=== PATIENT | female | born 1970 | race Caucasian/White ===

== ENCOUNTER → 2017-10-23 09:04 | Outpatient (POV) | payer OTHER, SELFPAY | PROVIDERS: Visit Provider Nurse Practitioner Acute Care | DX: Z00.00 Encounter for general adult medical examination without abnormal findings (principal) ==

== ENCOUNTER → 2018-07-24 09:57 | Outpatient (POV) | payer OTHER, SELFPAY | PROVIDERS: Visit Provider Dermatology | DX: Z00.00 Encounter for general adult medical examination without abnormal findings (principal) ==

== ENCOUNTER → 2018-07-27 13:12 | Outpatient (CLI) | payer OTHER, MEDICARE, SELFPAY ==
--- NOTE | 2018-07-27 13:23 | US_ITS ---
ULTRASOUND THYROID HISTORY: Left neck swelling. Thyroid swelling Thyroid enlarged PROCEDURE: Multiple sagittal and transverse ultrasound images of the thyroid.. COMPARISON: None ----- FINDINGS: Homogeneous Thyroid gland appears normal size bilaterally with tiny cyst on right. Probable lipoma adjacent to the left lobe of thyroid. Incidentally noted. ISTHMUS: Normal of moderate homogeneous Isthmus 4 mm AP. Thickness RIGHT LOBE: 3.6 cm x 1 cm wide x 1.3 cm AP. Nodule A: Very tiny barely evident 2.7 mm x 1.1 mm tiny cyst. Not of significance. LEFT LOBE: 2.6 cm length x1.1 similar wide x 0.8 cm AP. . Adjacent to the left lobe is a 3.1cm length x 0.8 cm AP x 2.4 cm transverse Cm flat disc shaped area which is likely a lipoma. It is adjacent the left lobe of thyroid, adjacent to the sternocleidomastoid muscle. If This becomes more palpable, enlarges or more problematic, a CT neck with contrast recommended to further evaluate. IMPRESSION...... Normal size homogeneous thyroid gland. Only a very tiny cyst seen at right lobe. Not of significance Incidental note a probable lipoma just adjacent the left lobe of thyroid. 3.1 cm right x0.8 cm AP If This enlarges, becomes more palpable, 4 more problematic, then a CT neck with contrast recommended to further evaluate.
== END ==
PROVIDERS: PCP Pediatrics; Visit Provider Pediatrics
DX: E01.0 Iodine-deficiency related diffuse (endemic) goiter (principal)
CPT/HCPCS: 76536

== ENCOUNTER → 2020-04-23 14:15 | Outpatient (CLI) | payer OTHER, SELFPAY ==
[2020-04-23 16:05] LABS: Chloride 105 mmol/L (98-107); Potassium 4.1 mmoL/L (3.5-5.1); Sodium 140 mmol/L (136-145)
[2020-04-23 16:07] LABS: Blood Urea Nitrogen 20 mg/dl (7-17); Estimated Glomerular Filt Rate 58 ml/min (>60); GFR (African American) 71 ML/MIN (>60)
[2020-04-23 16:08] LABS: Alanine Aminotransferase 47 U/L (12-78); Albumin Level 4.3 g/dl (3.5-5.0); Albumin/Globulin Ratio 1.3 (1.1-1.8); Alkaline Phosphatase 244 U/L (38-126); Anion Gap 14.1 mEq/L (5-15); Aspartate Amino Transferase 48 U/L (14-36); Bilirubin,Total 0.5 mg/dl (0.2-1.3); Calcium 9.5 mg/dl (8.4-10.2); Carbon Dioxide 25 mmol/L (22.0-30.0); Cholesterol 293 mg/dl (140-200); Globulin 3.4 g/dL (1.3-3.2); Glucose 105 mg/dl (74-100); Total Protein,Serum 7.7 g/dl (6.3-8.2); Triglycerides 240 mg/dl (30-150); VLDL Cholesterol 48 mg/dL (0-40)
[2020-04-23 16:09] LABS: Basophils # 0.1 K/mm3 (0-0.2); Basophils % 0.8 % (0.1-2.0); Eosinophils # 0.6 K/mm3 (0.0-0.4); Eosinophils % 7.9 % (0.1-12.0); HDL Cholesterol 59 mg/dl (40-60); Hematocrit 44.2 % (37.0-47.0); Hemoglobin 14.4 g/dL (12.2-16.2); Lymphocytes # 2.4 K/mm3 (0.7-4.5); Lymphocytes % 30.3 % (10-50); Mean Corpuscular HGB Conc 32.5 g/dL (31.8-35.4); Mean Corpuscular Hemoglobin 30.4 pg (27.0-31.2); Mean Corpuscular Volume 93.5 fl (81-99); Mean Platelet Volume 9.5 fl (7.4-10.4); Monocytes # 0.4 K/mm3 (0.1-1.0); Monocytes % 4.5 % (1.7-9.3); Neutrophils # 4.5 K/mm3 (1.8-7.8); Neutrophils % 56.4 % (37.0-80.0); Platelet Count 317 K/mm3 (142-424); Red Blood Count 4.73 M/mm3 (4.20-5.40); Red Cell Distribution Width 13.4 % (11.5-17.5); White Blood Count 7.9 K/mm3 (4.8-10.8)
[2020-04-23 16:20] LABS: Direct LDL Cholesterol 184.12 mg/dL (100-129)
[2020-04-23 16:30] LABS: 25-OH Vitamin D, Total 28.5 ng/mL (30-100)
[2020-04-23 16:40] LABS: Thyroid Stimulating Hormone 3.66 uIU/mL (0.465-4.68)
[2020-04-25 19:39] LABS: FSH 55.8 mIU/mL (.); LH 53.3 mIU/mL (.); Progesterone <0.1 ng/mL (.)
[2020-04-27 12:20] LABS: Estrogen 356 pg/mL (.)
== END ==
PROVIDERS: Visit Provider Physician Assistant
DX: R63.5 Abnormal weight gain (principal); E55.9 Vitamin D deficiency, unspecified; Z79.899 Other long term (current) drug therapy
CPT/HCPCS: 80053; 80061; 82306; 82672; 83001; 83002; 84144; 84436; 84443; 85025

== ENCOUNTER → 2020-06-18 10:45 | Outpatient (CLI) | payer OTHER, MEDICARE, SELFPAY ==
--- NOTE | 2020-06-18 10:46 | MM_ITS ---
PROCEDURE: MM DIG SCREENING MAMM BI W/CAD Digital Breast Tomosynthesis Included CLINICAL INDICATION: Breast cancer screening There is no personal or family history of breast cancer. Patient currently is on estrogen. COMPARISON: MG DMSB DIGITAL MAMM-SCREEN BILATERAL from 06/17/2010 MG DMDBAV DIG MAMM-DX BILAT W/ADD VIEWS from 01/20/2011 TECHNIQUE: Standard CC and MLO images and 3D Tomosynthesis was obtained. R2 CAD reviewed. FINDINGS: Scattered diffuse fibroglandular densities are seen in both breasts. There has been some mild interval fatty replacement the breast parenchyma compared to previous studies. There are couple of benign-appearing microcalcifications left breast. There is no suspicious lesion breast and suspicious microcalcifications. CAD marking left breast was reviewed appears represent minimal asymmetric glandular elements. IMPRESSION: Fibrofatty parenchyma with no suspicious lesions seen BI-RAD Category: 2 Benign Finding(s) FOLLOW-UP: 1YR 1 Year Follow-up (A letter has been sent to the patient regarding results of the study.) Dictated by: Dr. Collin Pretty MD 06/27/2020 09:37 Dr. Collin Pretty MD in [place] 06/27/2020 09:37
== END ==
PROVIDERS: PCP Physician Assistant; Visit Provider Physician Assistant
DX: Z12.31 Encounter for screening mammogram for malignant neoplasm of breast (principal); R63.5 Abnormal weight gain
CPT/HCPCS: 77063; 77067

== ENCOUNTER → 2020-06-24 15:10 | Outpatient (CLI) | payer OTHER, SELFPAY ==
--- NOTE | 2020-06-24 15:10 | US_ITS ---
PROCEDURE: US EXTREMITY LT LIMITED CLINICAL INDICATION: pain left deltoid COMPARISON: No exams were available for comparison FINDINGS: Homogeneous echogenicity is demonstrated within the deltoid muscle in the area clinical concern. No abnormal fluid collections are evident. No obvious muscle tear is are evident. MRI may provide further evaluation if clinically desired IMPRESSION: Unremarkable ultrasound of the left deltoid region Dictated by: Gonzalo Ayala MD 06/24/2020 17:32 Gonzalo Ayala MD in [place] 06/24/2020 17:32
== END ==
PROVIDERS: PCP Physician Assistant; Visit Provider Physician Assistant
DX: M79.602 Pain in left arm (principal)
CPT/HCPCS: 76882

== ENCOUNTER → 2020-07-21 14:37 | Outpatient (CLI) | payer OTHER, SELFPAY ==
[2020-07-21 16:37] LABS: Coronavirus 19 IgG Antibody Negative (Negative); Coronavirus 19 IgM Antibody Negative (Negative)
[2020-07-23 14:24] LABS: Hep A Ab, IgM Negative (Negative); Hepatitis B Core Antibody IgM Negative (Negative); Hepatitis B Surface Antigen Negative (Negative)
[2020-07-24 06:17] LABS: Hepatitis C Antibody <0.1 s/co ratio (0.0-0.9)
== END ==
PROVIDERS: Visit Provider Physician Assistant
DX: Z20.822 Contact with and (suspected) exposure to COVID-19 (principal); R05 Cough; R89.9 Unspecified abnormal finding in specimens from other organs, systems and tissues
CPT/HCPCS: 80074; 86328

== ENCOUNTER → 2020-08-03 15:10 | Outpatient (CLI) | payer OTHER, SELFPAY ==
--- NOTE | 2020-08-03 15:10 | MR_ITS ---
PROCEDURE: MR HUMERUS LT WO CON CLINICAL INDICATION: swelling left deltoid Intermittent whole arm pain [id number]. Possible torn muscle COMPARISON: US US EXTREMITY LT LIMITED from 06/24/2020 TECHNIQUE: Routine multiplanar multi echo sequences are performed without gadolinium enhancement. FINDINGS: There is a mild degree of motion artifact which somewhat obscures fine detail. Small linear area of increased T2 signal is present within the deltoid muscle superiorly and medially adjacent to the humeral head suggesting a small amount of fluid in this region which could be posttraumatic. No large muscle tear is apparent. No obvious fracture of the humerus. The glenohumeral region is not well delineated. There is a small shoulder joint effusion. IMPRESSION: Small amount of fluid signal intensity within the medial aspect of the deltoid which could be posttraumatic and could be seen with minimal muscular tear. No large tear is are apparent. Small shoulder joint effusion. Dictated by: Gonzalo Ayala MD 08/05/2020 08:51 Gonzalo Ayala MD in [place] 08/05/2020 08:51
== END ==
PROVIDERS: PCP Physician Assistant; Visit Provider Physician Assistant
DX: M79.602 Pain in left arm (principal)
CPT/HCPCS: 73218

== ENCOUNTER → 2020-08-24 08:51 | Outpatient (CLI) | payer OTHER, SELFPAY ==
--- NOTE | 2020-08-24 08:51 | FL_ITS ---
PROCEDURE: FL BARIUM SWALLOW CLINICAL INDICATION: dysphgia COMPARISON: No exams were available for comparison FINDINGS: There is mild spasm the cricopharyngeus. Small anterior osteophytes are present at C5-C6 also causing some posterior impingement upon the cervical esophagus. There is a small sliding hiatal hernia narrowing of the distal esophagus which does not permit the passage of a 12.5 mm barium tablet. The narrowing is smooth in nature possibly due to stricture formation not as thin as what 1 would expect for a normal Schatzki's ring. There is some shouldering of this region posteriorly. IMPRESSION: 1. Smooth narrowing of the distal esophagus with shouldering posteriorly which does not permit the passage of a 12.5 mm barium tablet. This may be due to esophageal stricture. Direct visualization is suggested to exclude the possibility of a neoplastic process. 2. Small sliding hiatal hernia Dictated by: Gonzalo Ayala MD 08/24/2020 09:59 Gonzalo Ayala MD in [place] 08/24/2020 09:59
== END ==
PROVIDERS: PCP Physician Assistant; Visit Provider Surgery
DX: R13.10 Dysphagia, unspecified (principal)
CPT/HCPCS: 74220

== ENCOUNTER 2020-08-24 10:57 | Outpatient (RCR) | payer OTHER, SELFPAY ==
--- NOTE | 2020-08-24 13:49 | HMH.OTOPEV ---
OT Inpatient Evaluation Rehab OT Outpatient Eval Start: 08/24/20 13:40 Freq: Status: Active Protocol: Document 08/24/20 13:40 RMARSHALL (Rec: 08/24/20 13:49 [id number] Electronically Signed By Toña Jackson OT 08/24/20 13:40 Outpatient Therapy Subjective History Subjective History Pt is a 50 year old female who reports to therapy due to L shoulder/arm pain. Pt reports ~3 months ago she was reaching behind her couch with left arm when she felt she has strained it. Ever since this incident she has hand pain and stiffness in Left shoulder. Pt does demonstrate with significant decline in AROM and strength at left shoulder. Pt has seen PCP and has an appointment with ortho on September 11. Pt will continue to be seen in order to address all deficits. Chief Complaint Pain,Stiff,Weakness Symptom Type Ache,Throb,Sharp,Dull Symptoms Relieved By Nothing,Rest/Positioning Symptoms Aggravated By Physical Activity,Lifting Prior Functional Limitations None Current Functional Limitations Reaching,Lifting,Housework, Sleeping,Squatting Symptom Description Intermittent,Activity Dependent Level of pain today (0-10) 0 Pain scale - at its best (0-10) 0 Pain scale - at its worst (0-10) 10 Shoulder/Elbow Eval Shoulder Objective Measurements Shoulder ROM Left Shoulder Abduction Active Range of 85 degrees Motion (degrees) Shoulder Flexion Active Range of Motion 65 degrees (degrees) Query Text: Shoulder External Rotation Active Range 30 degrees of Motion (degrees) Shoulder Internal Rotation Active Range 35 degrees of Motion (degrees) pain with active ROM shoulder exam left standard pain with passive ROM shoulder exam left standard decreased ROM shoulder exam standard left Shoulder MMT Shoulder Abduction Strength Grade 3- Fair- Shoulder Extension Strength Grade 3- Fair- Shoulder Flexion Strength Grade 3- Fair- Shoulder External Rotation Strength 3- Fair- Grade Shoulder Internal Rotation Strength 3- Fair- Grade Shoulder Strength Patient Testing Sitting Position Elbow O
== END 2020-08-24 10:59 | disposition home or self-care (01) ==
LOC: OT 10:57
PROVIDERS: PCP Physician Assistant; Visit Provider Physician Assistant
DX: M79.602 Pain in left arm (principal)
CPT/HCPCS: 97166

== ENCOUNTER → 2020-08-25 12:50 | Outpatient (CLI) | payer OTHER, SELFPAY | PROVIDERS: Visit Provider Surgery | DX: Z20.822 Contact with and (suspected) exposure to COVID-19 (principal); U07.1 COVID-19 | CPT/HCPCS: U0003 ==

== ENCOUNTER → 2020-09-04 16:50 | Outpatient (CLI) | payer OTHER, SELFPAY ==
--- NOTE | 2020-09-04 16:51 | MR_ITS ---
PROCEDURE INFORMATION: Exam: MR Head Without Contrast Exam date and time: 09/04/2020 4:51 PM Age: 50 years old Clinical indication: Pain; Headache; Migraine; Additional info: Headaches. PT C/O chronic migraines with dizziness. TECHNIQUE: Imaging protocol: MR of the head without contrast. COMPARISON: No relevant prior studies available. FINDINGS: Brain: Normal. No acute infarct. No hemorrhage. No significant white matter disease. No edema. Cerebral ventricles: Normal. No ventriculomegaly. Bones/joints: Unremarkable. Paranasal sinuses: Normal as visualized. No acute sinusitis. Mastoid air cells: Normal as visualized. No mastoid effusion. Orbital cavity: Unremarkable. Soft tissues: Unremarkable. IMPRESSION: No acute findings.
== END ==
LOC: RAD 16:51
PROVIDERS: PCP Physician Assistant; Visit Provider Specialist
DX: G43.019 Migraine without aura, intractable, without status migrainosus (principal); H91.90 Unspecified hearing loss, unspecified ear
CPT/HCPCS: 70551

== ENCOUNTER → 2020-09-15 12:21 | Outpatient (CLI) | payer OTHER, SELFPAY | PROVIDERS: Visit Provider Surgery | DX: Z01.812 Encounter for preprocedural laboratory examination (principal); Z20.822 Contact with and (suspected) exposure to COVID-19; Z13.810 Encounter for screening for upper gastrointestinal disorder; Z12.11 Encounter for screening for malignant neoplasm of colon | CPT/HCPCS: U0003 ==

== ENCOUNTER 2020-09-17 07:48 | Day surgery (SDC) | payer OTHER, SELFPAY ==
[2020-08-25 14:00] VITALS: BMI 40.0
[2020-09-17] VITALS (7 sets, daily range): BP systolic 126–149; BP diastolic 66–85; PULSE 54–79; RESP 16–20; TEMP 36.1–36.6; O2SAT 95–99
--- NOTE | 2020-09-17 09:11 | P.PN_ITS ---
[facility] Anesthesia Checklist - Structural Data Admitted From: Home Planned Operative Procedure/s: egd,colonoscopy Consent for Planned Operative Procedure(s) Verified: Yes - Additional verifications Anesthesia Reactions: No - Airway Assessment C-Spine Mobility Assessed: Yes TMJ Mobility Assessed: Yes Dentition: Good Dentition - Neurological Assessment Level of Consciousness: Awake, Alert, Appropriate - Anesthesia Plan Anesthesia Risk discussed: Yes Anesthesia Plan: Verified ASA Class: II Anesthesia Type: MAC [facility] History I have reviewed the patient's past medical history: Yes Medical History: Reports:: Anxiety, Cancer, Depression, Hyperlipidemia, Hypertension, Migraine Denies:: Diabetes Mellitus Type 1, Diabetes Mellitus Type 2, Internal Pacemaker, Lung Disease, MRSA, Seizures *Have you ever received a pneumonia vaccine?: No *Have you received a flu vaccine this season?: No Other Medical History: Reports: Sinus Problems, Other Anesthesia experience/problems:: none Other Surgeries: Yes: Appendectomy, Cholecystectomy, Colonoscopy, Hysterectomy- Total. No: Pacemaker Amputation: No Fractures: No - *Social History Smoking Status: Never smoker Alcohol Intake: never Substance Use Type: denies use *Occupational Status:: other Housing: house Household Members: spouse, children *Travel in the last 8 weeks: None - Psychiatric History Pschychiatric History:: Reports:: Anxiety, Depression Family Hx:: Cancer, Diabetes, Heart Attack, Hypertension
--- NOTE | 2020-09-17 09:59 | P.PCN_ITS ---
- Procedure: Date: 09/17/20 Patient Date of :: 1970 Procedure Performed:: Esophagogastroduodenoscopy with biopsy Colonoscopy with polypectomy Indications:: Dysphagia History of esophageal stricture requiring dilation. Recent barium swallow showing smooth narrowing of the distal esophagus with shouldering posteriorly History of colon polyps Performing Provider:: Ilan Buck MD Referring Provider:: . Sedation:: Monitored anesthesia care Procedure:: After informed consent was obtained the patient was taken to the endoscopy suite. Sedation ensued after the patient was transferred to the left lateral decubitus position. Pulse, blood pressure, and oxygen saturation were monitored throughout the procedure. The endoscope was advanced beyond the duodenal bulb. Retroflexion within the gastric lumen was accomplished. The gastroscope was carefully removed. Digital rectal exam revealed no significant abnormality. The colonoscope was placed in position. The entire colon was evaluated. The colonoscope was carefully removed and the patient was transferred to recovery in stable condition. Please see findings and specimens below for detail. Findings:: Distal esophageal stricture consistent with partial Schatzki ring. Scope was able to pass with minimal difficulty creating slight dilatation. Once this was completed the scope passed with no difficulty. A biopsy was obtained at this site. No additional dilatation completed secondary to above findings. Sliding hiatal hernia Poor bowel preparation for colonoscopy Significant spasticity and lack of relaxation Sigmoid diverticulosis Complex pedunculated friable polyp at 32 cm (tattoo and snare) Specimens:: Antral biopsy Biopsy of gastroesophageal junction/site of stricture Large complex pedunculated friable colon polyp at 32 cm (snare and tattoo) Recommendations:: Follow-up pathology Proton pump inhibition Likely repeat EGD in near future for serial dilatation Timing of repeat colonoscopy is pending pathology but will likely be between 6- 12 months secondary to poor bowel preparation, lack of relaxation, and size/nature of polyp at 32 cm. Complications:: No immediate with the exception of poor bowel preparation Estimated blood obtained (mL): 1
== END 2020-09-17 10:45 | disposition home or self-care (01) ==
PROVIDERS: PCP Physician Assistant; Visit Provider Surgery
PROC: 0DJ08ZZ Inspection of Upper Intestinal Tract, Via Natural or Artificial Opening Endoscopic (ICD-10-PCS; CPT 43235; principal; 2020-09-17 09:00)
DX: Z12.11 Encounter for screening for malignant neoplasm of colon (principal); K63.5 Polyp of colon; K58.9 Irritable bowel syndrome, unspecified; K57.30 Diverticulosis of large intestine without perforation or abscess without bleeding; K22.2 Esophageal obstruction; K44.9 Diaphragmatic hernia without obstruction or gangrene; Z87.19 Personal history of other diseases of the digestive system; Z86.010 Personal history of colon polyps; F41.9 Anxiety disorder, unspecified; E78.5 Hyperlipidemia, unspecified; I10 Essential (primary) hypertension; G43.909 Migraine, unspecified, not intractable, without status migrainosus; Z85.9 Personal history of malignant neoplasm, unspecified
CPT/HCPCS: 43239; 45385; 45381

== ENCOUNTER → 2020-10-19 13:57 | Outpatient (POV) | payer OTHER, SELFPAY | PROVIDERS: Visit Provider Nurse Practitioner Family | DX: Z00.00 Encounter for general adult medical examination without abnormal findings (principal) ==

== ENCOUNTER 2020-11-29 13:04 | Observation (INO) | payer OTHER, MEDICARE, SELFPAY ==
[2020-11-29 14:00] VITALS: BP 101/75; PULSE 82; RESP 20; TEMP 36.8; O2SAT 98; BMI 33.3
--- NOTE | 2020-11-29 14:28 | HMH.EDUTC ---
[facility] [place] Disposition Clinical Impression: Hypokalemia Pneumonia Qualifiers: Pneumonia type: due to unspecified organism Laterality: unspecified laterality Lung location: unspecified part of lung Qualified Code(s): J18.9 - Pneumonia, unspecified organism Disposition: Still a Patient Condition on Discharge: Good Instructions: Pneumonia-Adult Referrals: Harika King PA [Primary Care Provider] - Time of Disposition: 16:05 Medical Decision Making - Naman Inquiry Pt receiving controlled substance: No Vital Signs: 11/29/20 14:00 Temperature 98.3 F Temperature Source Oral Pulse Rate [Right Brachial] 82 Respiratory Rate 20 Blood Pressure [Right Arm] 101/75 L Blood Pressure Mean [Right Arm] 83 Blood Pressure Source [Right Arm] Automatic Cuff Blood Pressure Position [Right Arm] Sitting 02 Sat by Pulse Oximetry 98 Oxygen Delivery Method Room Air - Lab Data Lab Results 11/29/20 14:58: WBC 4.1 L, RBC 4.85, Hgb 13.7, Hct 43.0, MCV 88.6, MCH 28.2, MCHC 31.8, RDW 13.9, Plt Count 158, MPV 9.3, Neut % (Auto) 65.5, Lymph % (Auto) 28.4, Pope % (Auto) 5.4, Eos % (Auto) 0.2, Baso % (Auto) 0.5, Neut # (Auto) 2.7, Lymph # (Auto) 1.2, Pope # (Auto) 0.2, Eos # (Auto) 0.0, Baso # (Auto) 0.0 11/29/20 14:58: Sodium 142, Potassium 3.1 L, Chloride 105, Carbon Dioxide 25, Anion Gap 15.1 H, BUN 9, Creatinine 0.80, Estimated Creat Clear 119, Estimated GFR 76, Est GFR ( Amer) 92, Glucose 109 H, Calcium 8.4 Result diagrams: 11/29/20 14:58 11/29/20 14:58 Orders (Tests/Meds): ED MEDICATIONS Discontinued Medications Generic Name Dose Route Start Last Admin Trade Name Freq PRN Reason Stop Dose Admin Potassium Chloride 20 meq 11/29/20 15:40 Potassium Chloride 20meq Tab PO 11/29/20 15:41 ONCE ONE ORDERS Category Date Time Status Rapid PCR Covid and Flu A/B Stat Lab 11/29/20 16:00 Ordered [facility] [place] HPI - General Chief complaint: [facility]gent [facility] Stated complaint: cough, diarrhea Time Seen by Provider: 11/29/20 14:32 Mode of Arrival: Ambulatory Source of Information: Patient, Spouse Limitations: No Limitations Description of Symptoms (Recalled from Triage Doc. by RN): PATIENT C/O DIARRHEA, NAUSEA, COUGH, WEAKNESS AND DECREASED APPETITE. SHE STATES SYMPTOMS STARTED LAST MONDAY. REPORTS A RECENT 15 POUND WEIGHT LOSS HEENT Symptoms (Recalled from RN notes): No Resp Symptoms (Recalled from RN notes): Yes Skin Symptoms (Recalled from RN notes): No MS Symptoms (Recalled from RN notes): No Functional Status (Recalled from RN notes): WNL - History of Present Illness Provider Complaint: 50 yr old female presents for c/o diarrhea,nausea,cough,weakness, soa, and decrease appetite since last monday. pt states she has lost 15 lbs since symptoms started. - Related Data Home Medications Medication Instructions Recorded Confirmed Montelukast Sodium [Singulair] 10 mg PO HS 08/25/20 10/05/20 Trazodone HCl 100 mg PO DAILY 08/25/20 10/05/20 Topiramate 250 mg PO DAILY 09/17/20 10/05/20 esomeprazole magnesium 20 mg 20 mg PO DAILY 10/05/20 10/05/20 capsule,delayed release Previous Rx's Medication Instructions Recorded estradiol 1 mg tablet 1 mg PO DAILY #30 tab 09/09/20 atorvastatin 10 mg tablet See Rx Instructions .ROUTE 11/03/20 .COMPLEX #30 tablet levocetirizine 5 mg tablet See Rx Instructions .ROUTE 11/06/20 .COMPLEX #30 tablet ergocalciferol (vitamin D2) 1,250 See Rx Instructions .ROUTE 11/12/20 mcg (50,000 unit) capsule .COMPLEX #4 cap venlafaxine 37.5 mg See Rx Instructions .ROUTE 11/12/20 capsule,extended release 24 hr .COMPLEX #30 capsule Allergies Allergy/AdvReac Type Severity Reaction Status Date / Time sulfamethoxazole Allergy Verified 10/05/20 09:57 [From ] trimethoprim [From ] Allergy Verified 10/05/20 09:57 - Worker's Comp Is this a Worker's Comp case?: No [facility] History - Hepatitis A Screen Drug use history?: No High risk sexual be
--- NOTE | 2020-11-29 14:31 | XR_ITS ---
PROCEDURE INFORMATION: Exam: XR Chest Exam date and time: 11/29/2020 2:31 PM Age: 50 years old Clinical indication: Cough and other: Congestion; Patient HX: Cough and congestion for a week. TECHNIQUE: Imaging protocol: XR of the chest. Views: 2 views. COMPARISON: MR HUMERUS LT WO CON 08/03/2020 3:24 PM FINDINGS: Lungs: Patchy faint airspace densities bilaterally. Worrisome for multifocal pneumonia. Pleural spaces: Unremarkable. No pleural effusion. No pneumothorax. Heart/Mediastinum: Unremarkable. No cardiomegaly. Bones/joints: Unremarkable. IMPRESSION: Patchy faint airspace densities bilaterally. Worrisome for multifocal pneumonia.
[2020-11-29 15:23] LABS: Basophils % 0.5 % (0.1-2.0); Chloride 105 mmol/L (98-107); Eosinophils % 0.2 % (0.1-12.0); Hemoglobin 13.7 g/dL (12.2-16.2); Lymphocytes # 1.2 K/mm3 (0.7-4.5); Lymphocytes % 28.4 % (10-50); Mean Corpuscular HGB Conc 31.8 g/dL (31.8-35.4); Mean Corpuscular Hemoglobin 28.2 pg (27.0-31.2); Mean Corpuscular Volume 88.6 fl (81-99); Mean Platelet Volume 9.3 fl (7.4-10.4); Monocytes # 0.2 K/mm3 (0.1-1.0); Monocytes % 5.4 % (1.7-9.3); Neutrophils # 2.7 K/mm3 (1.8-7.8); Neutrophils % 65.5 % (37.0-80.0); Platelet Count 158 K/mm3 (142-424); Potassium 3.1 mmoL/L (3.5-5.1); Red Blood Count 4.85 M/mm3 (4.20-5.40); Red Cell Distribution Width 13.9 % (11.5-17.5); Sodium 142 mmol/L (136-145); White Blood Count 4.1 K/mm3 (4.8-10.8)
[2020-11-29 15:26] LABS: Blood Urea Nitrogen 9 mg/dl (7-17); Creatinine Clearance Estimated 119 mL/min (50-200); Estimated Glomerular Filt Rate 76 ml/min (>60); GFR (African American) 92 ML/MIN (>60)
[2020-11-29 15:27] LABS: Anion Gap 15.1 mEq/L (5-15); Calcium 8.4 mg/dl (8.4-10.2); Carbon Dioxide 25 mmol/L (22.0-30.0); Glucose 109 mg/dl (74-100)
[2020-11-29 16:11] VITALS: BP 101/75; PULSE 82; RESP 20; TEMP 36.8; O2SAT 98
[2020-11-29 16:12] LABS: Influenza A, PCR Not Detected (NotDetected); Influenza B, PCR Not Detected (NotDetected)
[2020-11-29 16:20] VITALS: BMI 36.6
--- NOTE | 2020-11-29 16:25 | HMH.HP ---
*Admission Date: 11/29/20 *Chief complaint: soa,weakness *History of present illness: 50 yr old female presents to the [facility] c/o diarrhea,nausea,cough,weakness, soa, and decrease appetite since last monday. pt states she has lost 15 lbs since symptoms started. Pt states her weakness and soa has increased. Discussed with dr cruz, decision to admit and orders per dr cruz for pneumonia r/t covid. [facility] History I have reviewed the patient's past medical history: Yes Medical History: Reports:: Anxiety, Cancer, Depression, Hyperlipidemia, Hypertension, Migraine Denies:: Diabetes Mellitus Type 1, Diabetes Mellitus Type 2, Internal Pacemaker, Lung Disease, MRSA, Seizures *Have you ever received a pneumonia vaccine?: No *Have you received a flu vaccine this season?: No Other Medical History: Reports: Sinus Problems, Other Other Surgeries: Yes: Appendectomy, Cholecystectomy, Colonoscopy, EGD, Hysterectomy-Total. No: Pacemaker Amputation: No Fractures: No - *Social History Smoking Status: Never smoker Alcohol Intake: never Substance Use Type: denies use *Occupational Status:: other Housing: house Household Members: spouse, children *Travel in the last 8 weeks: None - Psychiatric History Pschychiatric History:: Reports:: Anxiety, Depression Family Hx:: Cancer, Diabetes, Heart Attack, Hypertension Review of Systems - Review of Systems Review of systems:: pertinent systems reviewed and negative unless documented below - Constitutional Reports body ache(s), Reports fatigue, Reports fever(s), Reports lack of energy, Reports weakness - Eyes Denies blurry vision - ENT Reports nasal obstruction, Reports sore throat, Denies dizziness - *Cardiovascular Reports shortness of breath, Reports shortness of breath with activity, Denies leg sores - *Respiratory Reports shortness of breath, Reports shortness of breath with activity - *Gastrointestinal Reports nausea, Reports vomiting - *Genitourinary Denies difficulty starting urination - *Musculoskeletal Denies abnormal walking - Integumentary/Breasts Denies unusual bruising - *Neurologic Reports headache(s), Denies dizziness - Psychiatric Denies anxiety - Endocrine Denies increased hunger - Hematologic/Lymphatic Denies easy bruising - Allergic/Immunologic Denies GI upset with certain foods Meds Home Medications Medication Instructions Recorded Confirmed Type Montelukast Sodium [Singulair] 10 mg PO HS 08/25/20 11/29/20 History Trazodone HCl 100 mg PO HS 08/25/20 11/30/20 History estradiol 1 mg tablet 1 mg PO DAILY #30 tab 09/09/20 11/29/20 Rx esomeprazole magnesium 20 mg 20 mg PO DAILY 10/05/20 11/29/20 History capsule,delayed release Atorvastatin Calcium [Lipitor 10mg 10 mg PO HS 11/29/20 11/30/20 History Tab] Ergocalciferol (Vitamin D2) 50,000 units PO WEEKLY 11/29/20 11/30/20 History [Drisdol] Levocetirizine Dihydrochloride 5 mg PO DAILY 11/29/20 11/29/20 History Venlafaxine HCl [Effexor Xr] 37.5 mg PO DAILY 11/29/20 11/29/20 History Topiramate 200 mg PO BID 11/30/20 11/30/20 History levoFLOXacin [Levofloxacin 750MG 750 mg PO DAILY 3 Days #3 tab 12/01/20 Rx Tablet*] Allergies Allergy/AdvReac Type Severity Reaction Status Date / Time sulfamethoxazole Allergy Verified 11/29/20 17:27 [From ] trimethoprim [From ] Allergy Verified 11/29/20 17:27 Exam Vital signs and Labs for Last 24 Hours: Temp Pulse Resp BP Pulse Ox 98.3 F 82 20 101/75 L 98 11/29/20 16:11 11/29/20 16:11 11/29/20 16:11 11/29/20 16:11 11/29/20 14:00 Laboratory Results - last 24 hr 11/29/20 14:58: WBC 4.1 L, RBC 4.85, Hgb 13.7, Hct 43.0, MCV 88.6, MCH 28.2, MCHC 31.8, RDW 13.9, Plt Count 158, MPV 9.3, Neut % (Auto) 65.5, Lymph % (Auto) 28.4, Becker % (Auto) 5.4, Eos % (Auto) 0.2, Baso % (Auto) 0.5, Neut # (Auto) 2.7, Lymph # (Auto) 1.2, Becker # (Auto) 0.2, Eos # (Auto) 0.0, Baso # (Auto) 0.0 11/29/20 14:58: Sodium 142, Potass
[2020-11-29 16:41] LABS: Coronavirus 19, PCR Detected (NotDetected)
--- NOTE | 2020-11-29 17:01 | PC.NURSE ---
Pt arrived to the floor at this time.
[2020-11-29 17:05] VITALS: BP 158/96; PULSE 83; RESP 22; TEMP 37.1
[2020-11-29 17:30] VITALS: BMI 37.5
--- NOTE | 2020-11-29 17:36 | PC.NURSE ---
Speci cup placed @ bedside. Pt has occasional non-productive cough. She is aware of need for sputum specimen and has been educated.
--- NOTE | 2020-11-29 17:46 | PC.NURSE ---
Waiting on pt's to bring meds to verify meds and dosing
[2020-11-29 19:17] LABS: Lactic Acid 0.6 mmol/L (0.7-2.1)
[2020-11-29 20:00] VITALS: BP 116/65; PULSE 63; RESP 16; TEMP 37.1; O2SAT 98
[2020-11-29 23:33] VITALS: BP 115/62; PULSE 59; RESP 16; TEMP 36.8; O2SAT 96
[2020-11-30 03:59] VITALS: BP 122/71; PULSE 54; RESP 16; TEMP 37; O2SAT 98
--- NOTE | 2020-11-30 04:16 | PC.NURSE ---
Patient is A&Ox4. no complaints of pain. rested throughout shift. VSS. no further concerns
[2020-11-30 04:20] VITALS: BMI 392282.7
--- NOTE | 2020-11-30 07:13 | P.CONPHA_ITS ---
[facility] Pharmacy VTE Monitoring - Patient Demographics Admission date: 11/29/20 Report Date: 11/30/20 Time: 07:13 Allergies/Adverse Reactions: Patient Allergies sulfamethoxazole [From Decra] Allergy (Verified 11/29/20 17:27) trimethoprim [From Decra] Allergy (Verified 11/29/20 17:27) Height: 1.57 cm Weight: 97.296 kg Patient Problems: Current Active Problems Pneumonia (Acute) Hypokalemia (Acute) - VTE Risk Labs: VTE Related Lab Results Hgb 13.7 g/dL (12.2-16.2) 11/29/20 14:58 Hct 43.0 % (37.0-47.0) 11/29/20 14:58 Plt Count 158 K/mm3 (142-424) 11/29/20 14:58 BUN 9 mg/dl (7-17) 11/29/20 14:58 Creatinine 0.80 mg/dl (0.52-1.04) 11/29/20 14:58 Estimated Creat Clear 119 mL/min (50-200) 11/29/20 14:58 VTE Score: 6 VTE Risk Level: Moderate Risk - Prophylaxis VTE Prophylaxis Ordered?: Yes Types of VTE Prophylaxis: TEDS Knee High Location of Applied Device: Bilateral Lower Extremeties
--- NOTE | 2020-11-30 07:17 | HMH.PHAINT ---
MEDICATION RECONCILIATION COMPLETED ON PATIENT USING EXTERNAL FILL HISTORY FROM PHARMACY. -KAREEM OSMAN, SANDRAD
[2020-11-30 08:00] VITALS: BP 119/63; PULSE 56; RESP 16; TEMP 36.8; O2SAT 92
[2020-11-30 08:20] LABS: Basophils % 0.2 % (0.1-2.0); Eosinophils % 0.2 % (0.1-12.0); Hematocrit 39.6 % (37.0-47.0); Hemoglobin 12.7 g/dL (12.2-16.2); Lymphocytes # 0.7 K/mm3 (0.7-4.5); Lymphocytes % 50.8 % (10-50); Mean Corpuscular HGB Conc 32.1 g/dL (31.8-35.4); Mean Corpuscular Hemoglobin 28.9 pg (27.0-31.2); Mean Corpuscular Volume 89.9 fl (81-99); Mean Platelet Volume 9.8 fl (7.4-10.4); Neutrophils # 0.7 K/mm3 (1.8-7.8); Neutrophils % 46.9 % (37.0-80.0); Platelet Count 134 K/mm3 (142-424); Red Blood Count 4.41 M/mm3 (4.20-5.40); Red Cell Distribution Width 13.8 % (11.5-17.5); White Blood Count 1.5 K/mm3 (4.8-10.8)
[2020-11-30 08:24] LABS: Chloride 114 mmol/L (98-107); Potassium 3.8 mmoL/L (3.5-5.1); Sodium 144 mmol/L (136-145)
[2020-11-30 08:26] LABS: Alanine Aminotransferase 29 U/L (12-78); Aspartate Amino Transferase 64 U/L (14-36); Blood Urea Nitrogen 10 mg/dl (7-17); Creatinine Clearance Estimated 170 mL/min (50-200); Estimated Glomerular Filt Rate 105 ml/min (>60); GFR (African American) 128 ML/MIN (>60)
[2020-11-30 08:27] LABS: Albumin Level 3.2 g/dl (3.5-5.0); Alkaline Phosphatase 235 U/L (38-126); Anion Gap 13.8 mEq/L (5-15); Bilirubin,Direct 0.4 mg/dl (0.0-0.4); Bilirubin,Total 0.4 mg/dl (0.2-1.3); Calcium 7.8 mg/dl (8.4-10.2); Carbon Dioxide 20 mmol/L (22.0-30.0); Glucose 128 mg/dl (74-100)
--- NOTE | 2020-11-30 08:46 | HMH.ACPN2 ---
Internal Medicine - PN: Subj *Date: 11/30/20 *Time: 08:46 Interval history: feels better - had positive covid -19 in 08/28 but neg in 09/28 but has dec wbc and plt ct Exam Vital signs and Labs for Last 24 Hours: Temp Pulse Resp BP Pulse Ox 98.2 F 56 L 16 119/63 92 L 11/30/20 08:00 11/30/20 08:00 11/30/20 08:00 11/30/20 08:00 11/30/20 08:00 Laboratory Results - last 24 hr 11/29/20 14:58: WBC 4.1 L, RBC 4.85, Hgb 13.7, Hct 43.0, MCV 88.6, MCH 28.2, MCHC 31.8, RDW 13.9, Plt Count 158, MPV 9.3, Neut % (Auto) 65.5, Lymph % (Auto) 28.4, [place] % (Auto) 5.4, Eos % (Auto) 0.2, Baso % (Auto) 0.5, Neut # (Auto) 2.7, Lymph # (Auto) 1.2, [place] # (Auto) 0.2, Eos # (Auto) 0.0, Baso # (Auto) 0.0 11/29/20 14:58: Sodium 142, Potassium 3.1 L, Chloride 105, Carbon Dioxide 25, Anion Gap 15.1 H, BUN 9, Creatinine 0.80, Estimated Creat Clear 119, Estimated GFR 76, Est GFR ( Amer) 92, Glucose 109 H, Calcium 8.4 11/29/20 16:05: SARS-CoV-2 (PCR) Detected A, Influenza A Untype (PCR) Not detected, Influenza Type B (PCR) Not detected 11/29/20 19:00: Lactate 0.6 L 11/30/20 07:17: WBC 1.5 L* D, RBC 4.41, Hgb 12.7, Hct 39.6, MCV 89.9, MCH 28.9, MCHC 32.1, RDW 13.8, Plt Count 134 L, MPV 9.8, Neut % (Auto) 46.9, Lymph % (Auto) 50.8 H, [place] % (Auto) 2.0, Eos % (Auto) 0.2, Baso % (Auto) 0.2, Neut # (Auto) 0.7 L*, Lymph # (Auto) 0.7, [place] # (Auto) 0.0 L, Eos # (Auto) 0.0, Baso # (Auto) 0.0 11/30/20 07:17: Sodium 144, Potassium 3.8 D, Chloride 114 H, Carbon Dioxide 20 L, Anion Gap 13.8, BUN 10, Creatinine 0.60 D, Estimated Creat Clear 170, Estimated GFR 105, Est GFR ( Amer) 128 D, Glucose 128 H, Calcium 7.8 L, Total Bilirubin 0.4, Direct Bilirubin 0.4, Conjugated Bilirubin 0.0, Indirect Bilirubin 0.0, Unconjugated Bilirubin 0.0, AST 64 H, ALT 29, Alkaline Phosphatase 235 H, Total Protein 6.0 L, Albumin 3.2 L I & O for Last 24 hours: Intake & Output 11/27/20 11/28/20 11/29/20 11/30/20 11:59 11:59 11:59 11:59 Intake Total 1581 / 1581 Output Total 600 / 600 Balance 981 / 981 Weight 214 lb 8 oz - Constitutional no acute distress, obese - *Routine HEENT Exam Head: Present: normocephalic Eye: Present: EOMI, PERRL ENT: Present: mucous membranes dry - *Routine Neck Exam Present: supple. Absent: JVD - *Routine Respiratory Exam Present: rhonchi - *Routine Cardiovascular Exam Present: RRR. Absent: murmur - *Routine Abdominal Exam Present: soft - *Routine Extremities Exam Absent: calf tenderness - *Routine Skin Exam Present: intact - *Routine Neurological Exam Present: alert, CN II-XII intact. Absent: motor deficit - Routine Psychiatric Exam Present: normal affect Assessment and Plan (1) Neutropenia Status: Acute Qualifiers: Neutropenia type: unspecified Qualified Code(s): D70.9 - Neutropenia, unspecified Category: Medical Code(s): D70.9 - Neutropenia, unspecified (2) Thrombocytopenia associated with COVID-19 Status: Acute Category: Medical Code(s): U07.1 - COVID-19; D69.59 - Other secondary thrombocytopenia (3) COVID-19 Status: Acute Category: Medical Code(s): U07.1 - COVID-19 (4) Obesity Status: Chronic Qualifiers: Obesity type: due to excess calories Obesity classification: adult class 3 (BMI >= 40) Serious obesity comorbidity presence: with serious comorbidity Body mass index: BMI 40.0-44.9 Qualified Code(s): E66.01 - Morbid (severe) obesity due to excess calories; Z68.41 - Body mass index [BMI]40.0-44.9, adult Category: Medical Code(s): E66.9 - Obesity, unspecified
[2020-11-30 08:47] LABS: MANUAL DIFFERENTIAL MANUAL DIFFERENTIAL (MANUAL DIFF)
[2020-11-30 09:27] VITALS: BMI 39.3
--- NOTE | 2020-11-30 10:47 | HMH.PULMCON ---
*Admission Date: 11/29/20 *Reason for consult:: COVID-19 pneumonia *History of present illness: Ms. Morrison is a 50-year-old female unvaccinated for COVID-19, never smoker, significant secondhand smoke exposure from her , no prior respiratory complaints, prior diagnosis of COVID-19 pneumonia in August 2020 during which testing was performed as a part of routine screening for preprocedure, not having any symptoms at that time presented to the hospital complaining of worsening cough and chest congestion for the last 5 days and was found to be positive for COVID-19 pneumonia and pulmonary was called for further management. [facility] History Medical History: Reports:: Anxiety, Depression, Hyperlipidemia, Hypertension, Migraine Denies:: Cancer, Diabetes Mellitus Type 1, Diabetes Mellitus Type 2, Internal Pacemaker, Lung Disease, MRSA, Seizures *Have you ever received a pneumonia vaccine?: No *Have you received a flu vaccine this season?: No Other Medical History: Reports: Sinus Problems, Other Other Surgeries: Yes: Appendectomy, Cholecystectomy, Colonoscopy, EGD, Hysterectomy-Total. No: Pacemaker Amputation: No Fractures: No - *Social History Smoking Status: Never smoker Alcohol Intake: never Substance Use Type: denies use *Occupational Status:: unemployed Housing: house Household Members: spouse *Travel in the last 8 weeks: None - Psychiatric History Pschychiatric History:: Reports:: Anxiety, Depression Family Hx:: Cancer, Diabetes, Hypertension ROS - Cons Reports anorexia, Reports body ache(s) - Eyes Denies blurry vision - ENT Denies abnormal hearing - Card Reports shortness of breath, Reports shortness of breath with activity - Resp Respiratory: Reports chest congestion, Reports cough, Reports non-productive cough, Reports dyspnea on exertion, Denies excessive phlegm production, Denies pain on inspiration, Denies pain with cough, Denies cough with sputum production - GI Gastrointestingal: Denies: abdominal pain - [place] Musculoskeletal: Reports muscle weakness - Psych Reports abnormal sleep pattern Meds Home Medications Medication Instructions Recorded Confirmed Type Montelukast Sodium [Singulair] 10 mg PO HS 08/25/20 11/29/20 History Trazodone HCl 100 mg PO HS 08/25/20 11/30/20 History estradiol 1 mg tablet 1 mg PO DAILY #30 tab 09/09/20 11/29/20 Rx esomeprazole magnesium 20 mg 20 mg PO DAILY 10/05/20 11/29/20 History capsule,delayed release Atorvastatin Calcium [Lipitor 10mg 10 mg PO HS 11/29/20 11/30/20 History Tab] Ergocalciferol (Vitamin D2) 50,000 units PO WEEKLY 11/29/20 11/30/20 History [Drisdol] Levocetirizine Dihydrochloride 5 mg PO DAILY 11/29/20 11/29/20 History Venlafaxine HCl [Effexor Xr] 37.5 mg PO DAILY 11/29/20 11/29/20 History Topiramate 200 mg PO BID 11/30/20 11/30/20 History Allergies Allergy/AdvReac Type Severity Reaction Status Date / Time sulfamethoxazole Allergy Verified 11/29/20 17:27 [From ] trimethoprim [From ] Allergy Verified 11/29/20 17:27 Exam - Constitutional Constitutional:: Present: no acute distress, comfortable - HENMT Exam HENMT: Present: normocephalic, atraumatic - Eye Exam Eyes:: Present: normal appearance both eyes and related structures - Neck Exam Neck:: Present: normal visual inspection - Respiratory Exam Respiratory:: Present: able to speak in complete sentences, no respiratory distress, crackles - Cardiovascular Exam Cardiac:: Present: S1, S2 - GI Exam GI:: Present: soft, no hepatosplenomegaly - Skin Exam Skin: Present: warm, dry - Neurological Exam Neurological: Present: alert, awake, normal cognition Internal Medicine - CN: Reslt - Labs CBC & Chem 7: 11/30/20 07:17 11/30/20 07:17 Labs: Short CBC 11/29/20 11/30/20 Range/Units 14:58 07:17 WBC 4.1 L 1.5 L* D (4.8-10.8) K/mm3 Hgb 13.7 12.7 (12.2-16.2) g/dL Hct 43.0 39.6 (37.0-47.0) % Plt Count 158 134 L (142-424)
[2020-11-30 10:56] LABS: D-Dimer 0.55 ug/mL (0.0-0.5)
[2020-11-30 10:59] LABS: C-Reactive Protein 20.2 mg/L (0-4)
[2020-11-30 11:46] LABS: Basophils % 0.1 % (0.1-2.0); Eosinophils % 0.1 % (0.1-12.0); Hematocrit 37.2 % (37.0-47.0); Hemoglobin 12.2 g/dL (12.2-16.2); Lymphocytes # 0.7 K/mm3 (0.7-4.5); Lymphocytes % 31.4 % (10-50); Mean Corpuscular HGB Conc 32.7 g/dL (31.8-35.4); Mean Corpuscular Hemoglobin 28.6 pg (27.0-31.2); Mean Corpuscular Volume 87.6 fl (81-99); Mean Platelet Volume 9.1 fl (7.4-10.4); Monocytes # 0.1 K/mm3 (0.1-1.0); Monocytes % 3.7 % (1.7-9.3); Neutrophils # 1.5 K/mm3 (1.8-7.8); Neutrophils % 64.7 % (37.0-80.0); Platelet Count 136 K/mm3 (142-424); Red Blood Count 4.25 M/mm3 (4.20-5.40); Red Cell Distribution Width 13.9 % (11.5-17.5); White Blood Count 2.2 K/mm3 (4.8-10.8)
[2020-11-30 11:49] VITALS: BP 116/62; PULSE 51; RESP 16; TEMP 36.4; O2SAT 97
[2020-11-30 14:16] LABS: Burr Cells 1+; Hypochromasia 1+; Lymphocytes % 23 % (10-50); Monocytes % 9 % (2-9); Neutrophils % 68 % (42-76); Platelet Estimate Normal; Total Cells Counted 100
[2020-11-30 15:16] VITALS: BP 126/77; PULSE 76; RESP 16; TEMP 36.7; O2SAT 97
--- NOTE | 2020-11-30 17:46 | PC.NURSE ---
PT IS SITTING UP IN THE BED EATING DINNER AT THIS TIME. PT HAS BEEN SITTING UP IN THE RECLINER MOST OF THE SHIFT. TOLERATING REGULAR DIET. PT HAS BEEN AMBULATING TO THE BATHROOM AND AROUND THE ROOM. NON PRODUCTIVE COUGH. PT HAS NO COMPLAINTS OF SOA. O2 SATURATION HAS MAINTAINED IN THE MID 90'S ON ROOM AIR. LUNG SOUNDS DIMINISHED. ABDOMEN SOFT/NON TENDER WITH ACTIVE BOWEL SOUNDS. VSS. WILL CONTINUE TO MONITOR.
[2020-11-30 20:00] VITALS: BP 136/75; PULSE 76; RESP 16; TEMP 36.8; O2SAT 98
[2020-12-01] VITALS: BP 135/73; PULSE 46; RESP 18; TEMP 37; O2SAT 99
[2020-12-01 03:35] VITALS: BP 118/69; PULSE 50; RESP 18; TEMP 36.6; O2SAT 96
--- NOTE | 2020-12-01 04:04 | PC.NURSE ---
Patient is A&Ox4. no complaints of pain.VSS. no further concerns noted by RN or voiced by patient/
--- NOTE | 2020-12-01 06:40 | PC.NURSE ---
patient refused labs this morning.
[2020-12-01 08:00] VITALS: BP 108/61; PULSE 54; RESP 18; TEMP 36.6; O2SAT 97; O2SAT 98
--- NOTE | 2020-12-01 08:14 | HMH.DCSUM ---
General - General Admission date:: 11/29/20 Discharge date: 12/01/20 HPI HPI: Ms. Morrison is a 50-year-old female unvaccinated for COVID-19, never smoker, significant secondhand smoke exposure from her , no prior respiratory complaints, prior diagnosis of COVID-19 pneumonia in August 2020 during which testing was performed as a part of routine screening for preprocedure, not having any symptoms at that time presented to the hospital complaining of worsening cough and chest congestion for the last 5 days and was found to be positive for COVID-19 pneumonia and pulmonary was called for further management. Hospital Course Hospital Course: Ms. Morrison is a 50-year-old female unvaccinated for COVID-19, never smoker, significant secondhand smoke exposure from her , no prior respiratory complaints, prior diagnosis of COVID-19 pneumonia in August 2020 during which testing was performed as a part of routine screening for preprocedure, not having any symptoms at that time presented to the hospital complaining of worsening cough and chest congestion for the last 5 days and was found to be positive for COVID-19 pneumonia and pulmonary was called for further management. 11/29/20 CXR: FINDINGS: Lungs: Patchy faint airspace densities bilaterally. Worrisome for multifocal pneumonia. Pleural spaces: Unremarkable. No pleural effusion. No pneumothorax. Heart/Mediastinum: Unremarkable. No cardiomegaly. Bones/joints: Unremarkable. IMPRESSION: Patchy faint airspace densities bilaterally. Worrisome for multifocal pneumonia. Electronically signed by Mariann Andrea MD Pulmonary has seen and recommends: Blood cultures pending so far. Chest x-ray admission bilateral minimal patchy airspace disease Patient this morning does not appear to be any respiratory distress. On room air. Plan: -Continue remdesivir and dexamethasone for COVID-19 pneumonia until discharge, can be discharged on levofloxacin to complete a total of 5-day course -Combivent every 6 hours as needed 50-year-old female patient sitting up in bed resting quietly, she denies any respiratory distress during the night. She denies any needs at present and verbalizes feeling better she is requesting to be discharged home. Current oxygenation is 97% on room air PLAN: 1. We will discharge home today 2. Follow-up with PCP in 1 week 3. Follow-up with pulmonology in 4 weeks 4. Levofloxacin 750 mg p.o. daily x3 days Objective Vital signs: Temp Pulse Resp BP Pulse Ox 97.9 F 50 L 18 118/69 96 12/01/20 03:35 12/01/20 03:35 12/01/20 03:35 12/01/20 03:35 12/01/20 03:35 no acute distress, obese - *Routine HEENT Exam Head: Present: normocephalic Eye: Present: EOMI ENT: Present: mucous membranes moist - *Routine Neck Exam Present: trachea midline. Absent: tracheal deviation - *Routine Respiratory Exam Present: CTA bilaterally. Absent: accessory muscle use - *Routine Cardiovascular Exam Present: RRR - *Routine Abdominal Exam Present: soft, normoactive bowel sounds. Absent: tenderness, firm - *Routine Extremities Exam Present: full ROM, pulses intact. Absent: cyanosis, clubbing, calf tenderness - *Routine Skin Exam Present: intact, dry, warm. Absent: cyanosis, erythema - *Routine Neurological Exam Present: alert, oriented X3. Absent: motor deficit - Routine Psychiatric Exam Present: normal affect, normal thought process. Absent: auditory hallucinations, visual hallucinations Results Labs on day of discharge: Labs from last 24 hours 11/30/20 11/30/20 11/30/20 11:20 10:25 10:25 WBC 2.2 L D RBC 4.25 Hgb 12.2 Hct 37.2 MCV 87.6 MCH 28.6 MCHC 32.7 RDW 13.9 Plt Count 136 L MPV 9.1 Neut % (Auto) 64.7 Lymph % (Auto) 31.4 [place] % (Auto) 3.7 Eos % (Auto) 0.1 Baso % (Auto) 0.1 Neut # (Auto) 1.5 L Lym
--- NOTE | 2020-12-01 11:26 | HMH.PULMPN ---
Internal Medicine - PN: Subj *Date: 12/01/20 *Time: 11:26 Interval history: No acute respiratory events overnight. Patient continued to remain on room air with no worsening respiratory distress. She denies any new complaints. Exam - Constitutional Constitutional:: Present: no acute distress, comfortable - HENMT Exam HENMT: Present: normocephalic, atraumatic - Eye Exam Eyes:: Present: normal appearance both eyes and related structures - Neck Exam Neck:: Present: normal visual inspection - Respiratory Exam Respiratory:: Present: able to speak in complete sentences, no respiratory distress, crackles, rales. Absent: wheezing - Cardiovascular Exam Cardiac:: Present: S1, S2 - GI Exam GI:: Present: soft - Skin Exam Skin: Present: warm, no rash - Neurological Exam Neurological: Present: alert, awake, normal cognition - Extremities Exam Extremities: Present: no cyanosis, no clubbing, edema - Psychiatric Exam Psychiatric: Present: normal affect Assessment and Plan (1) Neutropenia Status: Acute Qualifiers: Neutropenia type: unspecified Qualified Code(s): D70.9 - Neutropenia, unspecified Category: Medical Code(s): D70.9 - Neutropenia, unspecified (2) Thrombocytopenia associated with COVID-19 Status: Acute Category: Medical Code(s): U07.1 - COVID-19; D69.59 - Other secondary thrombocytopenia (3) COVID-19 Status: Acute Category: Medical Code(s): U07.1 - COVID-19 (4) Obesity Status: Chronic Qualifiers: Obesity type: due to excess calories Obesity classification: adult class 3 (BMI >= 40) Serious obesity comorbidity presence: with serious comorbidity Body mass index: BMI 40.0-44.9 Qualified Code(s): E66.01 - Morbid (severe) obesity due to excess calories; Z68.41 - Body mass index [BMI]40.0-44.9, adult Category: Medical Code(s): E66.9 - Obesity, unspecified - Assessment and plan all Dx Assessment and Plan for all problems:: #COVID-19 pneumonia: 50-year-old male no prior respiratory complaints, unvaccinated for COVID-19, prior history of COVID-19 pneumonia that was managed as an outpatient presents hospital with worsening respiratory distress and nonproductive count was found to be COVID-19 positive. Laboratory abnormalities significant for leukopenia at 1.5 with absolute neutrophil count at 700. Neutrophils has declined from 2700 to 700 and less than 24 hours-repeat CBC showed improving WBC and neutrophil count along with platelets COVID-19 PCR positive, influenza A & B PCR negative. D-dimer 0.55 and CRP at 20.2 Blood cultures pending so far. Chest x-ray admission bilateral minimal patchy airspace disease Patient this morning does not appear to be any respiratory distress. On room air. Plan: -Continue remdesivir and dexamethasone for COVID-19 pneumonia until discharge, can be discharged on levofloxacin to complete a total of 5-day course -Combivent every 6 hours as needed Thank you for involving pulmonary in this patient care. We will follow the patient in the clinic in 4 weeks
[2020-12-02 08:54] LABS: Peripheral Smear Review Scanned Result
== END 2020-12-01 12:55 | disposition home or self-care (01) ==
LOC: UTC 16:06 → 2ND 16:13
PROVIDERS: Internal Medicine Pulmonary Disease; Admitting Provider Emergency Medicine; Emergency Provider Nurse Practitioner Family; PCP Physician Assistant; Visit Provider Emergency Medicine
DX: U07.1 COVID-19 (principal); J18.9 Pneumonia, unspecified organism; D69.59 Other secondary thrombocytopenia; G43.909 Migraine, unspecified, not intractable, without status migrainosus; I10 Essential (primary) hypertension; Z79.899 Other long term (current) drug therapy; Z88.2 Allergy status to sulfonamides; Z88.8 Allergy status to other drugs, medicaments and biological substances; E66.01 Morbid (severe) obesity due to excess calories; Z68.39 Body mass index [BMI] 39.0-39.9, adult
CPT/HCPCS: 36415; 71046; 80048; 80076; 83605; 85007; 85025; 85378; 86140; 87040; 96365; 99202; G0378; G0463; J0456; J2405; U0003

== ENCOUNTER → 2021-06-11 11:48 | Outpatient (CLI) | payer OTHER, MEDICARE, SELFPAY | LOC: SL 11:50 | PROVIDERS: PCP Physician Assistant; Visit Provider Nurse Practitioner Family | DX: E66.9 Obesity, unspecified; Z68.35 Body mass index [BMI] 35.0-35.9, adult; G43.719 Chronic migraine without aura, intractable, without status migrainosus; G47.09 Other insomnia; R53.83 Other fatigue | CPT/HCPCS: G0399 ==

== ENCOUNTER → 2021-08-05 15:49 | Outpatient (CLI) | payer OTHER, SELFPAY ==
[2021-08-05 13:20] LABS: Alanine Aminotransferase 12 U/L (12-78); Albumin Level 3.8 g/dl (3.5-5.0); Albumin/Globulin Ratio 1.5 (1.1-1.8); Alkaline Phosphatase 147 U/L (38-126); Anion Gap 9.3 mEq/L (5-15); Aspartate Amino Transferase 23 U/L (14-36); Basophils % 0.5 % (0.1-2.0); Bilirubin,Total 0.4 mg/dl (0.2-1.3); Blood Urea Nitrogen 10 mg/dl (7-17); Carbon Dioxide 30 mmol/L (22.0-30.0); Chloride 105 mmol/L (98-107); Chol/HDL Ratio 2.8 (1-3.5); Cholesterol 171 mg/dl (140-200); Eosinophils # 0.2 K/mm3 (0.0-0.4); Eosinophils % 2.9 % (0.1-12.0); Estimated Glomerular Filt Rate 88 ml/min (>60); GFR (African American) 106 ML/MIN (>60); Globulin 2.5 g/dL (1.3-3.2); Glucose 88 mg/dl (74-100); HDL Cholesterol 62 mg/dl (40-60); Hematocrit 40.6 % (37.0-47.0); Hemoglobin 13.5 g/dL (12.2-16.2); Lymphocytes # 1.7 K/mm3 (0.7-4.5); Lymphocytes % 34.4 % (10-50); Mean Corpuscular HGB Conc 33.2 g/dL (31.8-35.4); Mean Corpuscular Hemoglobin 30.7 pg (27.0-31.2); Mean Corpuscular Volume 92.6 fl (81-99); Mean Platelet Volume 8.3 fl (7.4-10.4); Monocytes # 0.4 K/mm3 (0.1-1.0); Monocytes % 7.1 % (1.7-9.3); Neutrophils # 2.7 K/mm3 (1.8-7.8); Platelet Count 274 K/mm3 (142-424); Potassium 3.3 mmoL/L (3.5-5.1); Red Blood Count 4.39 M/mm3 (4.20-5.40); Red Cell Distribution Width 13.2 % (11.5-17.5); Sodium 141 mmol/L (136-145); Total Protein,Serum 6.3 g/dl (6.3-8.2); Triglycerides 131 mg/dl (30-150); VLDL Cholesterol 26 mg/dL (0-40)
[2021-08-05 13:31] LABS: Direct LDL Cholesterol 69.05 mg/dL (100-129)
[2021-08-05 13:37] LABS: 25-OH Vitamin D, Total 45.7 ng/mL (30-100)
[2021-08-05 13:52] LABS: Thyroid Stimulating Hormone 0.13 uIU/mL (0.465-4.68)
== END ==
LOC: LAB.DROPOF 15:50
PROVIDERS: Visit Provider Physician Assistant
DX: Z00.00 Encounter for general adult medical examination without abnormal findings (principal); E66.3 Overweight; Z68.34 Body mass index [BMI] 34.0-34.9, adult; Z79.899 Other long term (current) drug therapy
CPT/HCPCS: 80053; 80061; 82306; 84443; 85025

== ENCOUNTER → 2022-12-05 23:08 | Outpatient (CLI) | payer BC, SELFPAY ==
[2022-12-05 18:29] LABS: Alanine Aminotransferase 37 U/L (12-78); Albumin/Globulin Ratio 1.1 (1.1-1.8); Alkaline Phosphatase 230 U/L (38-126); Aspartate Amino Transferase 40 U/L (14-36); Bilirubin,Total 0.2 mg/dl (0.2-1.3); Blood Urea Nitrogen 16 mg/dl (7-17); Calcium 9.2 mg/dl (8.4-10.2); Carbon Dioxide 25 mmol/L (22.0-30.0); Chloride 98 mmol/L (98-107); Chol/HDL Ratio 2.6 (1-3.5); Cholesterol 213 mg/dl (140-200); Estimated Glomerular Filt Rate 65 ml/min (>60); GFR (African American) 79 ML/MIN (>60); Globulin 3.5 g/dL (1.3-3.2); Glucose 136 mg/dl (74-100); HDL Cholesterol 82 mg/dl (40-60); Sodium 141 mmol/L (136-145); Total Protein,Serum 7.5 g/dl (6.3-8.2); Triglycerides 225 mg/dl (30-150); VLDL Cholesterol 45 mg/dL (0-40)
[2022-12-05 18:33] LABS: Hemoglobin A1C 5.4 % (4.0-6.0)
[2022-12-05 18:40] LABS: Basophils % 0.4 % (0.1-2.0); Eosinophils # 0.1 K/mm3 (0.0-0.4); Eosinophils % 1.4 % (0.1-12.0); Hemoglobin 14.3 g/dL (12.2-16.2); Lymphocytes # 1.9 K/mm3 (0.7-4.5); Lymphocytes % 19.7 % (10-50); Mean Corpuscular HGB Conc 31.8 g/dL (31.8-35.4); Mean Corpuscular Hemoglobin 29.4 pg (27.0-31.2); Mean Corpuscular Volume 92.5 fl (81-99); Mean Platelet Volume 8.7 fl (7.4-10.4); Monocytes # 0.4 K/mm3 (0.1-1.0); Monocytes % 4.6 % (1.7-9.3); Neutrophils # 7.1 K/mm3 (1.8-7.8); Neutrophils % 73.8 % (37.0-80.0); Platelet Count 403 K/mm3 (142-424); Red Blood Count 4.86 M/mm3 (4.20-5.40); Red Cell Distribution Width 13.9 % (11.5-17.5); White Blood Count 9.7 K/mm3 (4.8-10.8)
[2022-12-05 18:41] LABS: Direct LDL Cholesterol 90.45 mg/dL (100-129)
[2022-12-05 18:47] LABS: 25-OH Vitamin D, Total 39.2 ng/mL (30-100)
[2022-12-05 19:19] LABS: Vitamin B12 993 pg/mL (239-931)
[2022-12-05 19:45] LABS: Anion Gap 21.1 mEq/L (5-15)
[2022-12-05 19:46] LABS: Potassium 3.1 mmoL/L (3.5-5.1)
== END ==
PROVIDERS: PCP Physician Assistant; Visit Provider Physician Assistant
DX: R53.83 Other fatigue (principal); E66.01 Morbid (severe) obesity due to excess calories; Z68.36 Body mass index [BMI] 36.0-36.9, adult; Z79.899 Other long term (current) drug therapy
CPT/HCPCS: 80053; 80061; 82306; 82607; 83036; 83735; 84443; 85025

== ENCOUNTER → 2022-12-13 08:08 | Outpatient (CLI) | payer BC, SELFPAY ==
[2022-12-14 12:45] LABS: HBsAg Screen Negative (Negative); HCV Ab Non Reactive (Non Reactive); Hep A Ab, IGM Negative (Negative); Hep B Core Ab, IgM Negative (Negative)
== END ==
PROVIDERS: PCP Physician Assistant; Visit Provider Physician Assistant
DX: R74.8 Abnormal levels of other serum enzymes (principal)
CPT/HCPCS: 36415; 80074

== ENCOUNTER → 2022-12-29 07:52 | Outpatient (CLI) | payer BC, SELFPAY ==
--- NOTE | 2022-12-29 07:58 | US_ITS ---
FINAL REPORT CLINICAL HISTORY: Elebvated liver enzymes COMPARISON: None FINDINGS: Sonographic images of the right upper quadrant were obtained. The pancreas is partially obscured. Liver has a coarsened echotexture. The gallbladder is absent. The common duct measures 7 mm which is normal for post cholecystectomy patient. Limited images of the right kidney are unremarkable. IMPRESSION: Coarsened echotexture of the liver. Reviewed, Interpreted and Dictated by Nathaniel Gastelum MD Transcribed by Lo Stewart Authenticated and [facility]
== END ==
PROVIDERS: PCP Physician Assistant; Visit Provider Physician Assistant
DX: R74.8 Abnormal levels of other serum enzymes (principal)
CPT/HCPCS: 76705

== ENCOUNTER → 2023-01-19 08:36 | Outpatient (CLI) | payer BC, SELFPAY ==
[2023-01-19 11:04] LABS: Basophils % 0.3 % (0.1-2.0); Eosinophils # 0.2 K/mm3 (0.0-0.4); Hematocrit 39.1 % (37.0-47.0); Hemoglobin 13.3 g/dL (12.2-16.2); Lymphocytes # 1.9 K/mm3 (0.7-4.5); Lymphocytes % 24.7 % (10-50); Mean Corpuscular HGB Conc 33.9 g/dL (31.8-35.4); Mean Corpuscular Hemoglobin 30.9 pg (27.0-31.2); Mean Platelet Volume 9.1 fl (7.4-10.4); Monocytes # 0.3 K/mm3 (0.1-1.0); Monocytes % 4.4 % (1.7-9.3); Neutrophils # 5.1 K/mm3 (1.8-7.8); Neutrophils % 68.6 % (37.0-80.0); Platelet Count 377 K/mm3 (142-424); Red Cell Distribution Width 14.2 % (11.5-17.5); White Blood Count 7.5 K/mm3 (4.8-10.8)
[2023-01-19 11:26] LABS: INR 0.94 (0.9-1.1); Prothrombin Time 10.2 seconds (10.1-12.5)
[2023-01-19 13:01] LABS: Ferritin 7.35 ng/ml (11.1-264)
[2023-01-19 13:10] LABS: Alanine Aminotransferase 32 U/L (12-78); Albumin Level 3.8 g/dl (3.5-5.0); Albumin/Globulin Ratio 1.2 (1.1-1.8); Alkaline Phosphatase 200 U/L (38-126); Aspartate Amino Transferase 40 U/L (14-36); Blood Urea Nitrogen 16 mg/dl (7-17); Calcium 8.6 mg/dl (8.4-10.2); Carbon Dioxide 31 mmol/L (22.0-30.0); Chloride 96 mmol/L (98-107); Estimated Glomerular Filt Rate 75 ml/min (>60); GFR (African American) 91 ML/MIN (>60); Globulin 3.2 g/dL (1.3-3.2); Glucose 101 mg/dl (74-100); Sodium 138 mmol/L (136-145)
[2023-01-19 13:11] LABS: Bilirubin,Total 0.1 mg/dl (0.2-1.3)
[2023-01-19 18:15] LABS: Iron 33 ug/dL (37-170)
[2023-01-19 18:29] LABS: Total Iron Binding Capacity 491 ug/dL (265-497)
[2023-01-20 13:08] LABS: Ceruloplasmin 48.8 mg/dL (19.0-39.0); Immunoglobulin A, Qn 164 mg/dL (87-352); Immunoglobulin G, Qn 1044 mg/dL (586-1602); Immunoglobulin M, Qn 39 mg/dL (26-217)
[2023-01-20 14:37] LABS: Actin (Smooth Muscle) Antibody 8 Units (0-19); Mitochondrial (M2) Antibody <20.0 Units (0.0-20.0)
[2023-01-20 16:14] LABS: Angiotensin Converting Enzyme 36 U/L (14-82); Deamidated Gliadin Abs, IgA 4 units (0-19); Deamidated Gliadin Abs, IgG 3 units (0-19); Endomysial IgA Antibody Negative (Negative); Tissue Transglutaminase IgA Ab <2 U/mL (0-3); Tissue Transglutaminase IgG Ab <2 U/mL (0-5)
[2023-01-25 08:29] LABS: Reticulin IgA Antibody Negative titer (Neg:<1:2.5)
[2023-01-27 16:38] LABS: Alpha-1-Antitrypsin 213 mg/dL (101-187)
[2023-01-28 09:52] LABS: Fibrosis Score 0.01; Fibrosis Stage F0-NO FIBROSIS
[2023-01-28 09:53] LABS: NASH Grade N1-MILD NASH; NASH Score 0.35; Steatosis Grade S2-S3; Steatosis Score 0.56
[2023-01-28 09:54] LABS: Alpha 2-Macroglobulins, Qn 120; Apolipoprotein A-1 219; Bilirubin, Total <0.1; Haptoglobin 262
[2023-01-28 09:55] LABS: ALT (SGPT) P5P 24; AST (SGOT) P5P 28; Cholesterol, Total 196; GGT 52; Triglycerides 208
[2023-01-28 09:57] LABS: Glucose 98
[2023-01-28 09:59] LABS: Antinuclear Antibodies (ANA) Negative
== END ==
LOC: LAB 08:37
PROVIDERS: Nurse Practitioner Family; PCP Physician Assistant; Visit Provider Physician Assistant
DX: R74.8 Abnormal levels of other serum enzymes (principal); R93.89 Abnormal findings on diagnostic imaging of other specified body structures
CPT/HCPCS: 36415; 80053; 81256; 82103; 82104; 82164; 82390; 82728; 82784; 83516; 83540; 83550; 85025; 85610; 86038; 86225; 86235; 86255; 86256

== ENCOUNTER → 2023-02-22 11:22 | Outpatient (CLI) | payer BC, SELFPAY ==
[2023-02-22 13:24] LABS: Alanine Aminotransferase 25 U/L (12-78); Albumin Level 4.1 g/dl (3.5-5.0); Alkaline Phosphatase 231 U/L (38-126); Aspartate Amino Transferase 39 U/L (14-36); Bilirubin,Direct 0.1 mg/dl (0.0-0.4); Total Protein,Serum 6.9 g/dl (6.3-8.2)
[2023-02-22 13:26] LABS: Bilirubin,Total 0.1 mg/dl (0.2-1.3)
[2023-02-24 16:12] LABS: Alkaline Phosphatase 230 IU/L (44-121); Bone Fraction: 24 % (14-68); Intestinal Frac.: 0 % (0-18); Liver Fraction: 76 % (18-85)
== END ==
PROVIDERS: PCP Physician Assistant; Visit Provider Nurse Practitioner Family
DX: R94.5 Abnormal results of liver function studies (principal); R74.8 Abnormal levels of other serum enzymes
CPT/HCPCS: 36415; 80076; 84075; 84080

== ENCOUNTER 2023-05-31 15:32 | Outpatient (CLI) | payer BC, SELFPAY ==
[2023-05-31 16:29] LABS: Alanine Aminotransferase 59 U/L (12-78); Albumin Level 4.1 g/dl (3.5-5.0); Alkaline Phosphatase 310 U/L (38-126); Aspartate Amino Transferase 39 U/L (14-36); Bilirubin,Direct 0.1 mg/dl (0.0-0.4); Bilirubin,Indirect 0.2 mg/dL (0.0-0.9); Bilirubin,Total 0.3 mg/dl (0.2-1.3); Bilirubin,Unconjugated 0.2 mg/dL (0.0-1.1); Total Protein,Serum 6.7 g/dl (6.3-8.2)
== END 2023-05-31 23:59 ==
LOC: LAB 15:33
PROVIDERS: PCP Physician Assistant; Visit Provider Nurse Practitioner Family
DX: R94.5 Abnormal results of liver function studies (principal); R74.8 Abnormal levels of other serum enzymes
CPT/HCPCS: 36415; 80076

== ENCOUNTER 2023-07-10 11:36 | Outpatient (CLI) | payer BC, SELFPAY ==
[2023-07-10 12:21] LABS: Alanine Aminotransferase 28 U/L (12-78); Albumin Level 3.6 g/dl (3.5-5.0); Alkaline Phosphatase 177 U/L (38-126); Aspartate Amino Transferase 23 U/L (14-36); Bilirubin,Direct 0.2 mg/dl (0.0-0.4); Bilirubin,Indirect 0.1 mg/dL (0.0-0.9); Bilirubin,Total 0.3 mg/dl (0.2-1.3); Bilirubin,Unconjugated 0.1 mg/dL (0.0-1.1); Total Protein,Serum 6.2 g/dl (6.3-8.2)
== END 2023-07-10 23:59 ==
PROVIDERS: PCP Physician Assistant; Visit Provider Nurse Practitioner Family
DX: R74.8 Abnormal levels of other serum enzymes (principal); R94.5 Abnormal results of liver function studies
CPT/HCPCS: 36415; 80076

== ENCOUNTER 2023-08-01 10:39 | Outpatient (CLI) | payer BC, SELFPAY ==
--- NOTE | 2023-08-01 10:40 | MM_ITS ---
PROCEDURE INFORMATION: Exam: MG Bilateral Screening 3D Mammography Exam date and time: 08/01/2023 10:27 AM Age: 53 years old Clinical indication: Screening examination TECHNIQUE: Imaging protocol: Bilateral Screening tomosynthesis and 2D mammography including computer-aided detection (CAD) when performed. COMPARISON: 1. MG MM DIG SCREENING MAMM BI W/CAD 06/18/2020 10:45 AM 2. MG DMDBAV DIG MAMM-DX BILAT W/ADD VIEWS 01/20/2011 2:01 PM FINDINGS: MAMMOGRAPHY: Breast composition: There are scattered areas of fibroglandular density. Mass: None. Architectural distortion: None. Calcifications: No suspicious calcifications. Asymmetric density: None. Skin thickening: None. Axillary adenopathy: None. IMPRESSION: No mammographic evidence of malignancy. Annual screening is recommended unless otherwise clinically indicated. ASSESSMENT: BI-RADS Category 1: Negative
== END 2023-08-01 23:59 | disposition home or self-care (01) ==
LOC: RAD 10:40
PROVIDERS: PCP Physician Assistant; Visit Provider Obstetrics & Gynecology
DX: Z12.31 Encounter for screening mammogram for malignant neoplasm of breast (principal)
CPT/HCPCS: 77063; 77067

== ENCOUNTER 2023-12-14 15:17 | Outpatient (CLI) | payer BC, SELFPAY ==
[2023-12-14 19:09] LABS: Basophils # 0.1 K/mm3 (0-0.2); Basophils % 0.6 % (0.1-2.0); Eosinophils # 0.2 K/mm3 (0.0-0.4); Eosinophils % 3.2 % (0.1-12.0); Hemoglobin 13.9 g/dL (12.2-16.2); Lymphocytes # 1.9 K/mm3 (0.7-4.5); Lymphocytes % 25.8 % (10-50); Mean Corpuscular HGB Conc 31.5 g/dL (31.8-35.4); Mean Corpuscular Hemoglobin 31.6 pg (27.0-31.2); Mean Platelet Volume 9.4 fl (7.4-10.4); Monocytes # 0.3 K/mm3 (0.1-1.0); Monocytes % 4.3 % (1.7-9.3); Neutrophils # 4.9 K/mm3 (1.8-7.8); Platelet Count 356 K/mm3 (142-424); Red Blood Count 4.39 M/mm3 (4.20-5.40); Red Cell Distribution Width 13.1 % (11.5-17.5); White Blood Count 7.4 K/mm3 (4.8-10.8)
[2023-12-14 19:34] LABS: Hemoglobin A1C 5.3 % (4.0-6.0)
[2023-12-14 19:58] LABS: Alanine Aminotransferase 23 U/L (12-78); Albumin Level 3.5 g/dl (3.5-5.0); Albumin/Globulin Ratio 1.2 (1.1-1.8); Alkaline Phosphatase 115 U/L (38-126); Aspartate Amino Transferase 27 U/L (14-36); Bilirubin,Total 0.3 mg/dl (0.2-1.3); Blood Urea Nitrogen 15 mg/dl (7-17); Calcium 8.5 mg/dl (8.4-10.2); Carbon Dioxide 24 mmol/L (22.0-30.0); Chloride 110 mmol/L (98-107); Chol/HDL Ratio 3.3 (1-3.5); Cholesterol 200 mg/dl (140-200); Estimated Glomerular Filt Rate 87 ml/min (>60); GFR (African American) 106 ML/MIN (>60); Glucose 98 mg/dl (74-100); HDL Cholesterol 60 mg/dl (40-60); Sodium 139 mmol/L (136-145); Total Protein,Serum 6.5 g/dl (6.3-8.2); Triglycerides 240 mg/dl (30-150); VLDL Cholesterol 48 mg/dL (0-40)
[2023-12-14 20:22] LABS: 25-OH Vitamin D, Total 23.7 ng/mL (30-100)
[2023-12-14 20:29] LABS: Direct LDL Cholesterol 100.51 mg/dL (100-129); Thyroid Stimulating Hormone 3.26 uIU/mL (0.465-4.68)
== END 2023-12-14 23:59 | disposition home or self-care (01) ==
LOC: LAB.DROPOF 12-15 15:17
PROVIDERS: PCP Student in an Organized Health Care Education/Training Program; Visit Provider Student in an Organized Health Care Education/Training Program
DX: E66.9 Obesity, unspecified (principal); E55.9 Vitamin D deficiency, unspecified; Z13.1 Encounter for screening for diabetes mellitus; Z68.37 Body mass index [BMI] 37.0-37.9, adult
CPT/HCPCS: 80050; 80053; 80061; 82306; 83036; 84443; 85025

== ENCOUNTER 2024-01-16 14:34 | Outpatient (CLI) | payer BC, SELFPAY ==
[2024-01-16 17:48] LABS: Coronavirus 19, PCR Not Detected (NotDetected); Influenza A, PCR Not Detected (NotDetected); Influenza B, PCR Not Detected (NotDetected)
== END 2024-01-16 23:59 | disposition home or self-care (01) ==
LOC: LAB.DROPOF 01-17 09:25
PROVIDERS: PCP Student in an Organized Health Care Education/Training Program; Visit Provider Student in an Organized Health Care Education/Training Program
DX: R05.9 Cough, unspecified (principal)
CPT/HCPCS: 87636

== ENCOUNTER 2024-01-25 11:17 | Outpatient (CLI) | payer BC, SELFPAY ==
--- NOTE | 2024-01-25 11:24 | XR_ITS ---
FINAL REPORT CLINICAL HISTORY: cough COMPARISON: 11/29/2020 FINDINGS: 2 views of the chest were obtained . The heart is normal in size. The mediastinum is within normal limits. The lungs are clear. There is no pneumothorax. Osseous structures are unremarkable. IMPRESSION: No acute cardiopulmonary process. Reviewed, Interpreted and Dictated by Nathaniel Gastelum MD Transcribed by Tata Gorman Authenticated and [facility]
== END 2024-01-25 23:59 | disposition home or self-care (01) ==
LOC: RAD 11:17
PROVIDERS: PCP Student in an Organized Health Care Education/Training Program; Visit Provider Student in an Organized Health Care Education/Training Program
DX: R05.9 Cough, unspecified (principal)
CPT/HCPCS: 71046